=== PATIENT | male | born 1975 | race Caucasian/White ===

== ENCOUNTER 2016-09-21 11:25 | Emergency (ER) | payer SELFPAY ==
[~2016-09-21] VITALS: Ht 182.9 cm; Wt 97.5 kg
--- NOTE | 2016-09-21 11:52 | ED EENT ---
History of Present Illness General Chief Complaint: Eye Problems Stated Complaint: POSS FB IN LEFT EYE Nursing Triage Note: patient reports redness, irritation and itching in L eye starting the of this month, patient has been using clear eye drops without relief Source: patient Exam Limitations: no limitations History of Present Illness Time seen by provider: 11:51 Allergies and Home Medications Allergies Coded Allergies: Penicillins (Verified Allergy, Unknown, 12/15/08) Home Medications No Active Prescriptions or Reported Meds Past Cwqmhxw-Btjekk-Wvendk Hx Patient Social History Alcohol Use: Occasionally Uses Recreational Drug Use: No Smoking Status: Never a Smoker Recent Foreign Travel: No Contact w/Someone Who Travel: No Recent Infectious Disease Expo: No Recent Hopitalizations: No Respiratory Hx Respiratory Disorders: No Cardiovascular Hx Cardiac Disorders: No Cancer Cancer: Testicular Physical Exam Vital Signs Vital Sign - Last 12Hours 09/21/16 11:37 Temp 98.7 Pulse 85 Resp 18 B/P (MAP) 142/98 Pulse Ox 96 Progress/Results/Core Measures Results/Orders My Orders Orders - PAULETTE NORMAN Tetracaine 0.5% Ophth Chelo Sdv (Tetracai (09/21/16 12:00) Fluorescein Strips (Xkrsp-J-Lcmwnw) (09/21/16 12:00) Orbits, Complete (4v. Or More) (09/21/16 12:14) Ketorolac Injection (Toradol Injection) (09/21/16 12:14) Medications Given in ED Current Medications Medications Dose Ordered Sig/Shahida Route Start Time Stop Time Status Last Admin Dose Admin Fluorescein Sodium 1 mg ONCE ONCE OU 09/21/16 12:00 09/21/16 12:01 DC 09/21/16 11:59 1 MG Tetracaine HCl 1 OR 2 DROPS INTO AFFEC... ONCE ONCE OP 09/21/16 12:00 09/21/16 12:01 DC 09/21/16 11:58 1 ML Vital Signs/I&O Vital Sign - Last 12Hours 09/21/16 11:37 Temp 98.7 Pulse 85 Resp 18 B/P (MAP) 142/98 Pulse Ox 96 Blood Pressure Mean: 113 Diagnostic Imaging Diagonstic Imaging: Xray Plain Films/CT/US/NM/MRI: other (orbits) Comments ORBITS, COMPLETE (4V. OR MORE) 4 views of the orbits. INDICATION: Left eye pain and redness. The patient works with metal. FINDINGS: No metallic or other radiopaque foreign body is seen in the orbits or intracranially. The orbital mccoy appear intact. The visualized paranasal sinuses appear grossly unremarkable. IMPRESSION: Unremarkable exam. Dictated by: Dictated on workstation # [id number] Reviewed: Reviewed by Me (radiology report reviewed by me) Departure Impression Impression: Primary Impression: Keratitis Disposition: HOME, SELF-CARE Condition: Improved Departure-Patient Inst. Decision time for Depature: 13:29 Referrals: CASEY SMALL OD, SHANE R OD NO,LOCAL PHYSICIAN (PCP) Primary Care Physician Patient Instructions: NO INSTRUCTIONS GIVEN Add. Discharge Instructions: All discharge instructions reviewed with patient and/or family. Voiced understanding. Tylenol extra strength [id number] as directed for pain. Ibuprofen 800 mg by mouth every 8 hours as needed for pain. Go directly to Dr. Small/Dr. Robibns's office from the emergency department. Return to the emergency department for worsened symptoms or any other concerns. Scripts No Active Prescriptions or Reported Meds Work/School Note: Work Release Form Date Seen in the Emergency Department: September 21, 2016 Return to Work: September 22, 2016 Restrictions: No Restrictions PAULETTE NORMAN September 21, 2016 11:52
[2016-09-21] MEDS ORDERED: TETRACAINE 0.5% OPHTH SOLN 4 ML BTL (SINGLE DOSE ONLY) OP ONE (12:00)
[2016-09-21] MEDS ORDERED: FLUORESCEIN (FLUOR-I-STRIPS) 1 MG STRP OU ONE (12:00)
[2016-09-21] MEDS ORDERED: KETOROLAC 60 MG/2 ML VIAL IM STA (12:14)
--- NOTE | 2016-09-21 12:38 | Diagnostic Imaging Report ---
4 views of the orbits. INDICATION: Left eye pain and redness. The patient works with metal. FINDINGS: No metallic or other radiopaque foreign body is seen in the orbits or intracranially. The orbital mccoy appear intact. The visualized paranasal sinuses appear grossly unremarkable. IMPRESSION: Unremarkable exam. Dictated by: Dictated on workstation # [id number]
[2016-09-21 13:34] VITALS: BP 142/98
== END 2016-09-21 13:36 | disposition home or self-care (01) ==
LOC: EDUNIT# 11:25 → ER 11:31
DX: H16.9 Unspecified keratitis (principal)
CPT/HCPCS: 70200; 99282

== ENCOUNTER 2018-10-05 14:20 | Emergency (ER) | payer OTHER, BC ==
[~2018-10-05] VITALS: Ht 182.9 cm; Wt 99.8 kg
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
--- NOTE | 2018-10-05 15:02 | Diagnostic Imaging Report ---
Indication: Right lower leg pain. AP and lateral views of the right tibia and fibula show no fracture or dislocation. Impression: Negative right tibia and fibula. Dictated by: Dictated on workstation # [id number]
[2018-10-05 15:45] VITALS: BP 139/84
--- OUTSIDE RECORDS SUMMARY | 2018-10-05 17:18 | XMS REPORT ---
Author Author EMERITA LUCIO Organization [facility] Address [address] [place] [address] Care Team Providers Care Mortgage Manager Name Role Phone EMERITA LUCIO Unavailable PROBLEMS Unknown Problems ALLERGIES Substance Reaction Event Type Date Status Penicillin V Potassium hives Drug Allergy Mar, Active ENCOUNTERS Encounter Location Date Diagnosis [facility] [address] [facility] [id number] [address] Mar, Pain in tooth K08.8 and Mouth pain K13.79 IMMUNIZATIONS No Known Immunizations SOCIAL HISTORY Never Assessed REASON FOR VISIT dental pain on the upper right side in the front. been hurting for the last 3 da ys. [email or web address] PLAN OF CARE Activity Details Follow Up With dental for appopriate dental care Reason: VITAL SIGNS Height 72 in 2018-03-20 Weight 223.0 lbs 2018-03-20 Temperature 97.5 degrees Fahrenheit 2018-03-20 Heart Rate 76 bpm 2018-03-20 Respiratory Rate 20 2018-03-20 BMI 30.24 kg/m2 2018-03-20 Blood pressure systolic 126 mmHg 2018-03-20 Blood pressure diastolic 78 mmHg 2018-03-20 MEDICATIONS Medication Instructions Dosage Frequency Start Date End Date Duration Status Acetaminophen 500 MG Orally every 6 hrs 1 capsule as needed 6h Active Clindamycin HCl 300 MG Orally every 8 hrs 2 capsules 8h Mar, 10 day(s) Active RESULTS No Results PROCEDURES No Known procedures INSTRUCTIONS MEDICATIONS ADMINISTERED No Known Medications MEDICAL (GENERAL) HISTORY Type Description Date Surgical History No know Surgical history
== END 2018-10-05 15:45 | disposition home or self-care (01) ==
LOC: EDUNIT# 14:20 → ER 14:21
DX: S80.11XA Contusion of right lower leg, initial encounter (principal); F17.200 Nicotine dependence, unspecified, uncomplicated; Z92.21 Personal history of antineoplastic chemotherapy; Z85.47 Personal history of malignant neoplasm of testis; Z88.0 Allergy status to penicillin; V43.52XA Car driver injured in collision with other type car in traffic accident, initial encounter; Y92.411 Interstate highway as the place of occurrence of the external cause
CPT/HCPCS: 73590